=== PATIENT | female | born 1965 | race Caucasian/White ===

== ENCOUNTER 2018-06-19 06:46 | Day surgery (SDC) | payer OTHER, SELFPAY ==
[2018-06-19] VITALS (9 sets, daily range): BP systolic 119–139; BP diastolic 33–88; PULSE 64–78; RESP 12–24; TEMP 36.4–36.7; O2SAT 95–100; BMI 23.1
--- NOTE | 2018-06-19 | PATH_ITS ---
[facility] Accession Number: [id number] . 01 Material submitted: . PART A: DUODENUM PART B: ANTRUM PART C: GE JUNCTION . 02 Diagnosis: A. Duodenum, Biopsy: Duodenal mucosa with no diagnostic abnormality. Negative for active inflammation, features of sprue, dysplasia or malignancy. . B. Antrum, Biopsy: Gastric antral mucosa with chronic gastritis. Negative for Helicobacter organisms by immunohistochemistry. Negative for intestinal metaplasia, dysplasia or malignancy. . C. Gastroesophageal Junction, Biopsy: Squamocolumnar junctional mucosa with specialized intestinal metaplasia, consistent with Beasley's esophagus. Negative for dysplasia or malignancy. [facility]/06/21/2018 . 02 Electronically signed: . Buddy Bender MD, PhD, Pathologist NPI- [id number] . 01 Gross description: . Received three formalin-filled containers each labeled with the patient's name. . A. In a container labeled duodenum, the specimen consists of a 0.2 cm portion of tissue. Entirely submitted in cassette A. B. In a container labeled antrum are two 0.1 to 0.2 cm portions of tissue. Entirely submitted in cassette B. C. In a container labeled GE junction are two 0.1 to 0.2 cm portions of tissue. Entirely submitted in cassette C. ([facility] [place]:[id number]) /[facility] . 02 Microscopic: . B. An immunohistochemical stain is performed to evaluate for Helicobacter organisms and is negative. The control stain showed appropriate reactivity. . C. An alcian blue stain is performed to evaluate for specialized intestinal metaplasia and highlights a focus of goblet cells. A control stain shows appropriate reactivity. . * This test was developed and its performance characteristics determined by [employer]. It has not been cleared or approved by the U.S. Food and Drug Administration. The FDA has determined that such clearance or approval is not necessary. This test is used for clinical purposes. It should not be regarded as investigational or for research. . 02 Pathologist provided ICD-10: K29.70, K22.70 . 02 CPT . 224717, 780003, 120136, [id number], [id number] Performed at: 01 [facility] [address] [id number] MD Irvin Waldron MD Phone: [phone] Performed at: 02 [facility] [address] [place] [id number] MD Alba Menon MD Phone: [phone]
--- NOTE | 2018-06-19 08:46 | PM.HP.1 ---
History of Present Illness Date Patient Seen: 06/19/18 Time Patient Seen: 08:46 Chief complaint: [id number] Narrative: Large healthy 53-year-old lady who presents today for EGD and colonoscopy. She has a history of GERD for which she has taken gozq-pbt-cpssmie remedies for many years. She has never had an EGD. She has never had a colonoscopy. She denies any family history of colon cancer. She does report that she has a troublesome hemorrhoid that she would like to have banded at the same time she has her colonoscopy if possible. Patient History Surgical History Status post delivery Status post delivery Status post colonoscopy Status post endometrial ablation Family & Social History Family History: Reviewed 06/19/18 by Carrie Ca MD Social History: household members spouse Tobacco & Substance use: Smoking Status Never smoker alcohol intake current Meds Home Medications Medication Instructions Recorded Confirmed Type calcium citrate-vitamin D3 1 tab PO #0 tab 01/13/16 05/07/18 History [Citracal + D Maximum] docusate sodium [Colace] 100 mg PO QDAY #0 cap 01/13/16 05/07/18 History sennosides [senna] 8.6 mg PO #0 tab 01/13/16 05/07/18 History calcium carbonate [Calci-Chew] 1 tab PO #0 05/30/17 History famotidine 20 mg PO QDAY #0 05/30/17 05/07/18 History rizatriptan [Maxalt-ELECTRICAL ESTIMATOR] 10 mg PO PRN PRN #5 tab 05/30/17 Rx estradiol 1 mg PO QDAY #90 tab 07/11/17 05/07/18 Rx medroxyprogesterone 2.5 mg tablet 2.5 mg PO QDAY #90 tab 05/27/18 Rx rizatriptan [Maxalt-ELECTRICAL ESTIMATOR] 10 mg PO PRN PRN 06/19/18 History Allergies Allergy/AdvReac Type Severity Reaction Status Date / Time gentamicin [GENTAMICIN] Allergy Unknown Verified 06/19/18 07:08 Sulfa (Sulfonamide Allergy Unknown Verified 06/19/18 07:08 Antibiotics) [SULFA (SULFONAMIDE ANTIBIOTICS)] sulfamethoxazole Allergy Unknown Verified 06/19/18 07:08 [From BACTRIM] trimethoprim [From BACTRIM] Allergy Unknown Verified 06/19/18 07:08 BRAZIL NUTS Allergy Unknown Uncoded 09/05/17 12:54 Review of Systems Review of Systems All systems reviewed & are unremarkable except as noted in HPI and below Exam Vital Signs (past 8 hours): - 06/19/18 07:12 Temperature 97.6 F Pulse Rate 78 Respiratory Rate 16 Blood Pressure 139/33 L Pulse Oximetry 100 Oxygen Delivery Method Room Air Narrative Exam Narrative: Pleasant well-nourished well-developed lady in no distress HEENT: Normocephalic and atraumatic, pupils equal round reactive to light accommodation with anicteric sclera Lungs: Clear bilaterally Heart: Regular rate and rhythm Abdomen: Soft, nontender, active bowel sounds. Perianal examination reveals 1 prolapsing structure consistent with either an anal polyp or a prolapsing internal hemorrhoid. It is associated with minimal bright red blood. Extremities: Warm and well perfused without edema Assessment & Plan Plan: Assessment/Plan Narrative: Healthy 53-year-old lady here for colonoscopy, esophagogastroduodenoscopy, and hemorrhoid banding. We discussed the risks and benefits of all the procedures the patient expressed desire to complete them today.
--- NOTE | 2018-06-19 08:49 | P.HP_ITS ---
History of Present Illness Date Patient Seen: 06/19/18 Time Patient Seen: 08:46 Chief complaint: [phone] Narrative: Large healthy 53-year-old lady who presents today for EGD and colonoscopy. She has a history of GERD for which she has taken over-the- counter remedies for many years. She has never had an EGD. She has never had a colonoscopy. She denies any family history of colon cancer. She does report that she has a troublesome hemorrhoid that she would like to have banded at the same time she has her colonoscopy if possible. Patient History Surgical History Status post delivery Status post delivery Status post colonoscopy Status post endometrial ablation Family & Social History Family History: Reviewed 06/19/18 by Carrie Ca MD Social History: household members spouse Tobacco & Substance use: Smoking Status Never smoker alcohol intake current Meds Home Medications Medication Instructions Recorded Confirmed Type calcium citrate-vitamin D3 1 tab PO #0 tab 01/13/16 05/07/18 History [Citracal + D Maximum] docusate sodium [Colace] 100 mg PO QDAY #0 cap 01/13/16 05/07/18 History sennosides [senna] 8.6 mg PO #0 tab 01/13/16 05/07/18 History calcium carbonate [Calci-Chew] 1 tab PO #0 05/30/17 History famotidine 20 mg PO QDAY #0 05/30/17 05/07/18 History rizatriptan [Maxalt-CD TECHNICIAN] 10 mg PO PRN PRN #5 tab 05/30/17 Rx estradiol 1 mg PO QDAY #90 tab 07/11/17 05/07/18 Rx medroxyprogesterone 2.5 mg tablet 2.5 mg PO QDAY #90 tab 05/27/18 Rx rizatriptan [Maxalt-CD TECHNICIAN] 10 mg PO PRN PRN 06/19/18 History Allergies Allergy/AdvReac Type Severity Reaction Status Date / Time gentamicin [GENTAMICIN] Allergy Unknown Verified 06/19/18 07:08 Sulfa (Sulfonamide Allergy Unknown Verified 06/19/18 07:08 Antibiotics) [SULFA (SULFONAMIDE ANTIBIOTICS)] sulfamethoxazole Allergy Unknown Verified 06/19/18 07:08 [From BACTRIM] trimethoprim [From BACTRIM] Allergy Unknown Verified 06/19/18 07:08 BRAZIL NUTS Allergy Unknown Uncoded 09/05/17 12:54 Review of Systems Review of Systems All systems reviewed & are unremarkable except as noted in HPI and below Exam Vital Signs (past 8 hours): - 06/19/18 07:12 Temperature 97.6 F Pulse Rate 78 Respiratory Rate 16 Blood Pressure 139/33 L Pulse Oximetry 100 Oxygen Delivery Method Room Air Narrative Exam Narrative: Pleasant well-nourished well-developed lady in no distress HEENT: Normocephalic and atraumatic, pupils equal round reactive to light accommodation with anicteric sclera Lungs: Clear bilaterally Heart: Regular rate and rhythm Abdomen: Soft, nontender, active bowel sounds. Perianal examination reveals 1 prolapsing structure consistent with either an anal polyp or a prolapsing internal hemorrhoid. It is associated with minimal bright red blood. Extremities: Warm and well perfused without edema Assessment & Plan Plan: Assessment/Plan Narrative: Healthy 53-year-old lady here for colonoscopy, esophagogastroduodenoscopy, and hemorrhoid banding. We discussed the risks and benefits of all the procedures the patient expressed desire to complete them today.
--- NOTE | 2018-06-19 08:56 | P.OP_ITS ---
Operative Date/Time/Diagnoses Date of procedure: 06/19/18 Time of procedure: 08:52 Pre-op diagnosis: Screening GERD Troublesome hemorrhoids Post-op diagnosis: same Procedure & Clinicians Procedure: Esophagogastroduodenoscopy with biopsies, colonoscopy, hemorrhoid banding Same procedure as scheduled: Yes Indications: No prior colonoscopy Surgeon: Carrie Ca Click Yes if Unassisted: Yes Anesthesia Type: General (Dr. Walls) Operative Notes Findings: 1. Normal-appearing duodenum 2. Normal-appearing antrum 3. Esophageal hiatus at 40 cm from the incisors with mucosal junction at 38-39 cm from the incisors 4. Mildly irregular appearing Z-line with at least 1 tongue of tissue that could be consistent with Beasley's esophagus on visual examination 5. Normal posterior oropharynx and true vocal cords 6. Excellent prep 7. No polyps or mass lesions or AV malformations 8. Minimal diverticulosis 9. One enlarged and prolapsing internal hemorrhoid 10. Remaining hemorrhoids are grade 1 Closure Type: not applicable Specimen(s): other (Cold forceps biopsies of the duodenum, antrum, GE junction) Estimated Blood Loss (mL): 1 Procedure in detail: After obtaining informed consent, the patient was brought to the GI suite and placed in the left lateral decubitus position on the examination table. After placement of appropriate monitors, a time out was held per SCOAP protocol. The patient received successful induction of anesthesia. We began with EGD. A bite block was gently placed between the patient's teeth. The endoscope was lubricated and then passed into the patient's posterior oropharynx. The esophagus was cannulated under direct vision and the scope was passed to the second portion of the duodenum without difficulty. The scope was then withdrawn with careful examination of all areas of the upper GI tract and mucosa. In the stomach, the instrument was retroflexed and the GE junction examined. The scope was straightened and the procedure continued with examination of the remainder of the upper GI tract. Findings are noted above. Air was aspirated from the stomach and the endoscope gently removed from the esophagus. The examination table was turned and we continued with the colonoscopy. A digital rectal examination was performed and did not reveal any masses or obstructing lesions. The colonoscope was gently passed into the patient's anus and the entire colon navigated to the level of the cecum with minimal difficulty. Once in the cecum, the scope was withdrawn being sure to go before and beyond all mucosal folds and prominences and get an excellent examination. The findings are noted above. At the level of the rectal vault, the scope was retroflexed and the internal anal canal was examined. The scope was straightened and air aspirated from the colon. The instrument was removed from the patient's body and the procedure was concluded. We continued with hemorrhoid banding. The retractor was placed in the patient' s anal canal and the single prolapsing internal hemorrhoid was easily visualized. This was grasped and 2 bands deployed at the base. The retractors were removed and the procedure concluded. The patient was allowed to awaken from sedation without difficulty and taken to the post-anesthesia care unit in good condition. Complications: none Disposition: PACU Plan for aftercare: 1. Discharge to home 2. Follow up with me in 2 weeks 3. Plan for next colonoscopy in 10 years or as clinically indicated
[2018-06-19] MEDS: ACETAMINOPHEN 325 MG TABLET 650 MG PO (09:14)
== END 2018-06-19 09:58 | disposition home or self-care (01) ==
PROVIDERS: PCP Family Medicine; Visit Provider Surgery
PROC: 0DJ08ZZ Inspection of Upper Intestinal Tract, Via Natural or Artificial Opening Endoscopic (ICD-10-PCS; CPT 43235; principal; 2018-06-19 07:45)
PROC: 0DJD8ZZ Inspection of Lower Intestinal Tract, Via Natural or Artificial Opening Endoscopic (ICD-10-PCS; CPT 45378; 2018-06-19 07:45)
DX: Z12.11 Encounter for screening for malignant neoplasm of colon (principal); K64.8 Other hemorrhoids; K21.9 Gastro-esophageal reflux disease without esophagitis; K57.30 Diverticulosis of large intestine without perforation or abscess without bleeding; K64.0 First degree hemorrhoids; K29.70 Gastritis, unspecified, without bleeding; K22.70 Barrett's esophagus without dysplasia
CPT/HCPCS: 43239; 45378; 46221; J2250; J2704; J3010

== ENCOUNTER → 2018-07-24 09:51 | Outpatient (CLI) | payer OTHER, SELFPAY ==
--- NOTE | 2018-07-24 | DI.MG.S_ITS ---
BILATERAL DIGITAL SCREENING MAMMOGRAM 3D/2D WITH CAD: 07/24/2018 CLINICAL: Routine screening. Comparison is made to exams dated: 04/02/2017 mammogram - [facility], 03/31/2016 mammogram, and 12/18/2014 mammogram - [facility]. The tissue of both breasts is heterogeneously dense. This may lower the sensitivity of mammography. Current study was also evaluated with a Computer Aided Detection (CAD) system. There are benign calcifications in both breasts. No significant masses, calcifications, or other findings are seen in either breast. There has been no significant interval change. IMPRESSION: There is no mammographic evidence of malignancy. A 1 year screening mammogram is recommended. This exam was interpreted at Station ID: [id number]. NOTE: For mammograms, a report in lay terms will be sent to the patient. Approximately 15% of breast malignancies will not be visualized mammographically. In the management of a palpable breast mass, a negative mammogram must not discourage biopsy of a clinically suspicious lesion. Electronically Signed By: Zi hall/sasha:07/24/2018 11:47:49 copy to: Gregorio Beltran letter sent: Normal Exam ACR BI-RADS Category 2: Benign Finding(s) 3342F
== END ==
PROVIDERS: PCP Family Medicine; Visit Provider Specialist
DX: Z12.31 Encounter for screening mammogram for malignant neoplasm of breast (principal)
CPT/HCPCS: 77063; 77067

== ENCOUNTER → 2020-02-05 14:22 | Outpatient (CLI) | payer OTHER, SELFPAY ==
--- NOTE | 2020-02-05 14:35 | DI.MG.S_ITS ---
Patient Name: CRICKET CHONG date: 1965 Sex: F Attending Physician: Elo Indications: Date: 02/05/2020 14:33 At the request of: RHETT CALLE Procedure: MM screening mammo BI BILATERAL DIGITAL SCREENING MAMMOGRAM 3D/2D WITH CAD: 02/05/2020 CLINICAL: Routine screening. Comparison is made to exams dated: 07/24/2018 mammogram, 04/02/2017 mammogram - [facility], and 03/31/2016 mammogram - [facility]. The tissue of both breasts is heterogeneously dense. This may lower the sensitivity of mammography. Current study was also evaluated with a Computer Aided Detection (CAD) system. No significant masses, calcifications, or other findings are seen in either breast. There has been no significant interval change. IMPRESSION: NEGATIVE There is no mammographic evidence of malignancy. A 1 year screening mammogram is recommended. This exam was interpreted at Station ID: [id number]. NOTE: For mammograms, a report in lay terms will be sent to the patient. Approximately 15% of breast malignancies will not be visualized mammographically. In the management of a palpable breast mass, a negative mammogram must not discourage biopsy of a clinically suspicious lesion. Electronically Signed By: Nicolette smart/sasha:02/05/2020 17:17:14 copy to: Gregorio Cheek letter sent: Normal Exam ACR BI-RADS Category 1: Negative 3341F
== END ==
PROVIDERS: PCP Family Medicine; Referring Provider Family Medicine; Visit Provider Family Medicine
DX: Z12.31 Encounter for screening mammogram for malignant neoplasm of breast (principal)
CPT/HCPCS: 77063; 77067

== ENCOUNTER → 2021-02-09 15:02 | Outpatient (CLI) | payer OTHER, SELFPAY ==
--- NOTE | 2021-02-09 15:03 | DI.MG.S_ITS ---
BILATERAL DIGITAL SCREENING MAMMOGRAM 3D/2D WITH CAD: 02/09/2021 CLINICAL: Routine screening. Comparison is made to exams dated: 02/05/2020 mammogram, 07/24/2018 mammogram, and 04/02/2017 mammogram - [facility]. The tissue of both breasts is heterogeneously dense. This may lower the sensitivity of mammography. Current study was also evaluated with a Computer Aided Detection (CAD) system. There are benign calcifications in both breasts. No significant masses, calcifications, or other findings are seen in either breast. There has been no significant interval change. IMPRESSION: BENIGN There is no mammographic evidence of malignancy. A 1 year screening mammogram is recommended. This exam was interpreted at Station ID: [id number]. NOTE: For mammograms, a report in lay terms will be sent to the patient. Approximately 15% of breast malignancies will not be visualized mammographically. In the management of a palpable breast mass, a negative mammogram must not discourage biopsy of a clinically suspicious lesion. Electronically Signed By: Emmett Kearney acr/sasha:02/09/2021 19:19:19 copy to: Gregorio Cheek letter sent: Normal Exam ACR BI-RADS Category 2: Benign Finding(s) 3342F
== END ==
PROVIDERS: PCP Student in an Organized Health Care Education/Training Program; Referring Provider Student in an Organized Health Care Education/Training Program; Visit Provider Student in an Organized Health Care Education/Training Program
DX: Z12.31 Encounter for screening mammogram for malignant neoplasm of breast (principal)
CPT/HCPCS: 77063; 77067

== ENCOUNTER → 2021-09-12 08:03 | Outpatient (CLI) | payer OTHER, SELFPAY ==
--- NOTE | 2021-09-12 08:06 | DI.ECHO.S_ITS ---
[facility] +---------+ : : [address] [place] [address] : : : : [id number] : : : : Phone: [phone]+ Echocardiogram Report + + :Name: CRICKET CHONG Study Date: 09/12/2021 Height: 64 in : :[facility] ReadingLocation: Weight: 145 lb : : Gender: Female BSA: 1.7 m2 : :: 1965 Age: 56 yrs BP: 154/91 mmHg: :Reason For Study: HYPERTENSION : :Ordering Physician: JANETH, : :KEO Performed By: Jennifer Singh : :Referring: KEO DUNBAR : + + Interpretation Summary 1) Normal left ventricular thickness, size, wall motion, and systolic function (EF 55-60%). 2) Normal right ventricular size and function. 3) No significant valvular abnormalities. 4) No prior Echo available for comparison. Procedure: A two-dimensional transthoracic echocardiogram with color flow and Doppler was performed. The study quality was technically adequate. There is no prior echocardiogram noted for this patient. The patient was in sinus rhythm with heart rates between 64-74 bpm during the exam. Left Ventricle: The left ventricle is normal in size and wall thickness. The ejection fraction is estimated to be 55-60%. Left ventricular systolic function appears normal without focal wall motion abnormalities. Right Ventricle: The right ventricle is normal in size and function. Atria: The left atrial size is normal. Right atrial size is normal. There is no Doppler evidence for an interatrial shunt. Mitral Valve: The mitral valve is normal in structure and function. There is mild mitral regurgitation. Aortic Valve: The aortic valve is trileaflet. The aortic valve opens well. There is no aortic valve stenosis. There is trace aortic regurgitation. Tricuspid Valve: The tricuspid valve is normal in structure and function. There is trace tricuspid regurgitation. Pulmonary artery pressures cannot be estimated because of the lack of a measurable TR jet velocity. Pulmonic Valve: The pulmonic valve is not well visualized. There is no pulmonic valvular regurgitation. Great Vessels: The aortic root is normal size. The dimensions of the ascending aorta are normal. The IVC is of normal diameter and collapses greater than 50% with a sniff. This suggests a low right atrial pressure of 3 mm Hg. Pericardium/ Pleura There is no pericardial effusion. There is no pleural effusion. MMode/2D Measurements & Calculations LVIDd: 4.2 cm LVOT diam: 2.0 cm LVIDs: 2.9 cm Ao root diam: 3.0 cm FS: 32.7 % asc Aorta Diam: 2.8 cm IVSd: 0.89 cm Ao Arch Diam (Prox Trans): 2.5 cm LVPWd: 0.77 cm LV ham. diameter/BSA (cm/m^2): 2.5 LV sys. diameter/BSA (cm/m^2): 1.7 LA A2 area: 18.2 cm2 RA long axis: 4.3 cm LA A4 area: 13.4 cm2 RA area: 11.5 cm2 LA length (vol): 4.7 cm RA vol: 26.0 ml LA vol: 43.9 ml RA : 15.2 ml/m2 LA vol index: 25.8 ml/m2 IVC diam: 1.2 cm RVD1 (basal): 2.8 cm RVD2 (mid): 2.6 cm TAPSE: 1.7 cm Doppler Measurements & Calculations Ao V2 max: 111.3 cm/sec LVOT Max Aleksandr: 98.6 cm/sec Ao V2 mean: 76.1 cm/sec LV V1 max P.9 mmHg Ao max P.0 mmHg LV V1 VTI: 20.7 cm Ao mean P.6 mmHg CARIDAD(I,D): 2.6 cm2 Ao V2 VTI: 24.6 cm CARIDAD(V,D): 2.7 cm2 sev ratio: 0.84 CARIDAD indexed to BSA (cm^2/m^2): 1.5 MV E max aleksandr: 94.8 cm/sec PA V2 max: 93.0 cm/sec MV A max aleksandr: 56.3 cm/sec PA V2 mean: 65.8 cm/sec MV E/A: 1.7 PA mean P.9 mmHg Med Peak E' Aleksandr: 6.4 cm/sec PA pr(Accel): 7.1 mmHg E/E' med: 14.9 Lat Peak E' Aleksandr: 6.7 cm/sec E/E' lat: 14.1 E/e' average: 14.5 MV dec time: 0.20 sec SV(LVOT): 64.0 ml Reading Physician:02:11 PM
== END ==
PROVIDERS: PCP Student in an Organized Health Care Education/Training Program; Referring Provider Internal Medicine Cardiovascular Disease; Visit Provider Internal Medicine Cardiovascular Disease
DX: I10 Essential (primary) hypertension (principal); I34.0 Nonrheumatic mitral (valve) insufficiency
CPT/HCPCS: 93306

== ENCOUNTER → 2022-02-21 11:27 | Outpatient (CLI) | payer OTHER, SELFPAY ==
--- NOTE | 2022-02-21 | DI.MG.S_ITS ---
BILATERAL DIGITAL SCREENING MAMMOGRAM 3D/2D WITH CAD: 02/21/2022 CLINICAL: Routine screening. Comparison is made to exams dated: 02/09/2021 mammogram, 02/05/2020 mammogram, 07/24/2018 mammogram, and 04/02/2017 mammogram - [facility]. Both breasts are heterogeneously dense, which may obscure small masses (category c / 51-75% glandular tissue). Current study was also evaluated with a Computer Aided Detection (CAD) system. There are benign calcifications in both breasts. No significant masses, calcifications, or other findings are seen in either breast. There has been no significant interval change. IMPRESSION: BENIGN There is no mammographic evidence of malignancy. A 1 year screening mammogram is recommended. Based on the Tyrer Cuzick model (a risk assessment model) the patient's lifetime risk is 11.7% and her 10 year risk is 4.3%. According to the ACR, ACS, and NCCN guidelines, an annual breast MRI exam along with mammogram is recommended if the patient's lifetime risk is 20% or greater. This exam was interpreted at Station ID: [id number]. NOTE: For mammograms, a report in lay terms will be sent to the patient. Approximately 15% of breast malignancies will not be visualized mammographically. In the management of a palpable breast mass, a negative mammogram must not discourage biopsy of a clinically suspicious lesion. Electronically Signed By: Rahul posadas/sasha:02/21/2022 14:18:02 copy to: Gregorio Cheek letter sent: Normal Exam ACR BI-RADS Category 2: Benign Finding(s) 3342F
== END ==
PROVIDERS: PCP Family Medicine; Referring Provider Family Medicine; Visit Provider Family Medicine
DX: Z12.31 Encounter for screening mammogram for malignant neoplasm of breast (principal)
CPT/HCPCS: 77063; 77067

== ENCOUNTER → 2023-03-13 11:30 | Outpatient (CLI) | payer OTHER, SELFPAY ==
--- NOTE | 2023-03-13 11:31 | DI.MG.S_ITS ---
BILATERAL DIGITAL SCREENING MAMMOGRAM 3D/2D WITH CAD: 03/13/2023 CLINICAL: Routine screening. Comparison is made to exams dated: 02/21/2022 mammogram, 02/09/2021 mammogram, and 02/05/2020 mammogram - [facility]. Both breasts are heterogeneously dense, which may obscure small masses (category c / 51-75% glandular tissue). Current study was also evaluated with a Computer Aided Detection (CAD) system. There are benign calcifications in both breasts. No significant masses, calcifications, or other findings are seen in either breast. There has been no significant interval change. IMPRESSION: BENIGN There is no mammographic evidence of malignancy. A 1 year screening mammogram is recommended. Based on the Tyrer Cuzick model (a risk assessment model) the patient's lifetime risk is 11.5% and her 10 year risk is 4.5%. According to the ACR, ACS, and NCCN guidelines, an annual breast MRI exam along with mammogram is recommended if the patient's lifetime risk is 20% or greater. This exam was interpreted at Station ID: [id number]. NOTE: For mammograms, a report in lay terms will be sent to the patient. Approximately 15% of breast malignancies will not be visualized mammographically. In the management of a palpable breast mass, a negative mammogram must not discourage biopsy of a clinically suspicious lesion. Electronically Signed By: Mary rosas/sasha:03/13/2023 16:34:27 copy to: Gregorio Cheek letter sent: Normal Exam ACR BI-RADS Category 2: Benign Finding(s) 3342F
== END ==
PROVIDERS: PCP Family Medicine; Referring Provider Family Medicine; Visit Provider Family Medicine
DX: Z12.31 Encounter for screening mammogram for malignant neoplasm of breast (principal)
CPT/HCPCS: 77063; 77067

== ENCOUNTER → 2024-04-01 11:45 | Outpatient (CLI) | payer OTHER, SELFPAY ==
--- NOTE | 2024-04-01 | DI.MG.S_ITS ---
BILATERAL DIGITAL SCREENING MAMMOGRAM 3D/2D WITH CAD: 04/01/2024 CLINICAL: Routine screening. Comparison is made to exams dated: 03/13/2023 mammogram, 02/09/2021 mammogram, and 02/21/2022 mammogram - [facility]. The breasts are heterogeneously dense, which may obscure small masses (category c / 51-75% glandular tissue). Current study was also evaluated with a Computer Aided Detection (CAD) system. No significant masses, calcifications, or other findings are seen in either breast. There has been no significant interval change. IMPRESSION: NEGATIVE There is no mammographic evidence of malignancy. A 1 year screening mammogram is recommended. Based on the Tyrer Cuzick model (a risk assessment model) the patient's lifetime risk is 11.0% and her 10 year risk is 4.6%. According to the ACR, ACS, and NCCN guidelines, an annual breast MRI exam along with mammogram is recommended if the patient's lifetime risk is 20% or greater. This exam was interpreted at Station ID: [id number]. NOTE: For mammograms, a report in lay terms will be sent to the patient. Approximately 15% of breast malignancies will not be visualized mammographically. In the management of a palpable breast mass, a negative mammogram must not discourage biopsy of a clinically suspicious lesion. Electronically Signed By: Rahul posadas/sasha:04/01/2024 12:43:22 copy to: Gregorio Cheek letter sent: Normal Exam ACR BI-RADS Category 1: Negative
== END ==
PROVIDERS: PCP Family Medicine; Referring Provider Family Medicine; Visit Provider Family Medicine
DX: Z12.31 Encounter for screening mammogram for malignant neoplasm of breast (principal); R92.333 Mammographic heterogeneous density, bilateral breasts
CPT/HCPCS: 77063; 77067

== ENCOUNTER → 2025-04-09 | Outpatient (CLI) | payer BC, SELFPAY ==
--- NOTE | 2025-04-09 14:28 | DI.RAD.S_ITS ---
PROCEDURE: XR DEXA AXIAL SKELETON INDICATIONS: ROUTINE SCREENING COMPARISON: None. FINDINGS: Lumbar Spine: Bone mineral density 1.012 g/cm2, T score -0.3. Left Femoral Neck: Bone mineral density 0.719 g/cm2, T score -1.2. Left Hip: Bone mineral density 0.825 g/cm2, T score -1.0. Fracture Risk Calculation (when applicable): 10-year fracture risk of a major osteoporotic fracture 16 percent and of a hip fracture 0.6 percent. (T score greater or equal to -1.0 to: NORMAL) (T score from -1.1 to -2.4: OSTEOPENIA) (T score less than or equal to -2.5: OSTEOPOROSIS) IMPRESSION: Osteopenia with increased 10 year fracture risk as above. Follow-up guidelines as follows: Osteoporosis: Consider a repeat DEXA and Vertebral Fracture Assessment (VFA) exam in 2 years or sooner if medically necessary, to reassess this patient's status. Osteopenia: Consider a repeat DEXA in 2-3 years to reassess this patient's status, or if there is a new clinical indication. Normal: Consider a repeat DEXA in 5 years or sooner, or if there is a new clinical indication. All treatment decisions require clinical judgment and consideration of individual patient factors, including patient preferences, comorbidities, previous drug use, risk factors not captured in the FRAX model (e.g., frailty, falls, vitamin D deficiency, increased bone turnover, interval significant decline in bone density ) and possible under- or over-estimation of fracture risk by FRAX. In addition, the NOF Guide recommends that FDA-approved medical therapies be considered in postmenopausal women and men age >= 50 years with a: * Hip or vertebral (clinical or morphometric) fracture * T-score of <=-2.5 at the spine or hip * Ten-year fracture probability by FRAX of >= 3% for hip fracture or >=20% for major osteoporotic fracture. Dictated by: Wily Waller M.D. on 04/09/2025 at 21:06 Approved by: Wily Waller M.D. on 04/09/2025 at 21:07
== END ==
LOC: RAD 14:28
PROVIDERS: PCP Family Medicine; Referring Provider Family Medicine; Visit Provider Family Medicine
DX: M85.852 Other specified disorders of bone density and structure, left thigh (principal); Z82.62 Family history of osteoporosis
CPT/HCPCS: 77080

== ENCOUNTER → 2025-05-14 08:41 | Outpatient (CLI) | payer BC, SELFPAY ==
--- NOTE | 2025-05-14 08:42 | DI.US.S_ITS ---
MM diagnostic mammo BI, US axillary only lt: 05/14/2025 BI-RADS: 1 CLINICAL: 60-year old female for bilateral diagnostic mammogram and left diagnostic breast ultrasound. Tyrer-Cuzick lifetime risk of 8.6%. No personal or first- degree family history of breast cancer. The patient reports pain and fullness (1 to 7 days) in the left axilla. PRIOR EXAMS 04/01/2024, 07/24/2022, 07/24/2021, 07/24/2020, 07/24/2019, 07/24/2018, 04/02/2017. MAMMOGRAPHY TECHNIQUE: 2D and 3D (tomosynthesis) digital mammographic views obtained, with additional images as needed for full coverage. Current study was also evaluated with a Computer Aided Detection (CAD) system. ULTRASOUND TECHNIQUE Exam is limited to the left axilla. Real-time maxwell scale imaging of the area of clinical interest was performed with image documentation. DENSITY C. The breasts are heterogeneously dense, which may obscure small masses. MAMMOGRAPHY FINDINGS Left (finding-1): MLO only, Axilla: There is no mammographic correlate for the patient's reported pain and swelling in the left axilla. Bilateral: No suspicious mass, asymmetry, microcalcification, or other abnormality seen. ULTRASOUND FINDINGS Left (finding-1): Axilla: There is no sonographic abnormality to account for concern by the patient. No abnormal lymph nodes are seen in the axilla. IMPRESSION: * No evidence of malignancy. RECOMMENDATIONS Left * Clinical follow-up is recommended, and further management of palpable abnormalities or other focal signs or symptoms should be based on the results of clinical evaluation. If palpable abnormality or other concerning symptom persists or progresses, further clinical evaluation should be considered. Bilateral * Annual screening mammography. COMMENTS: Findings and recommendations were conveyed to the patient during today's evaluation. OVERALL ASSESSMENT CATEGORY BI-RADS-1: Negative. The [employer] recommends annual screening mammography beginning at age 40 for women with average risk of breast cancer. ELECTRONICALLY SIGNED: Raquel Vinson M.D. on 05/14/2025 at 12:18:45 PM PT Interpreting Station ID: [id number]
== END ==
LOC: MAMMO 08:41
PROVIDERS: PCP Family Medicine; Referring Provider Family Medicine; Visit Provider Family Medicine
DX: N64.4 Mastodynia (principal); R92.333 Mammographic heterogeneous density, bilateral breasts
CPT/HCPCS: 76882; 77066; G0279